=== PATIENT | male | born 1975 | race Caucasian/White ===

== ENCOUNTER 2017-07-11 19:08 | Emergency (ER) | payer BC ==
[2017-07-11 19:09] VITALS: BMI 26.9
[2017-07-11 19:36] VITALS: O2SAT 99
[2017-07-11] MEDS ORDERED: Iohexol 240 (50 ml) PO STA (19:55)
[2017-07-11] MEDS ORDERED: Sodium Chloride 0.9% 1,000 ML IV ONE (19:55)
[2017-07-11] MEDS ORDERED: Iohexol 240 (50 ml) ONE (20:06)
[2017-07-11] MEDS ORDERED: Sodium Chloride 0.9% 1,000 ML ONE (20:07)
[2017-07-11 20:13] LABS: RBC URINE < 1 /hpf (0-3); URINE BILIRUBIN NEGATIVE (NEGATIVE); URINE BLOOD NEGATIVE (NEGATIVE); URINE COLOR Yellow (YELLOW); URINE GLUCOSE (UA) NORMAL (Normal); URINE KETONE NEGATIVE (NEGATIVE); URINE LEUKOCYTE ESTERASE NEG Leu/uL (Negative); URINE PROTEIN NEGATIVE (NEGATIVE); URINE UROBILINOGEN NORMAL mg/dL (0.2-1.0); WBC URINE < 1 /hpf (0-5)
[2017-07-11 20:16] LABS: BASO # 0.1 K/uL (0.0-0.2); EOS # 0.1 K/uL (0.0-0.7); EOS % 0.8 % (0.0-4.0); HEMATOCRIT 39.7 % (35.0-51.0); LYMPH # 4.6 K/uL (1.0-4.3); LYMPH % 36.3 % (20.0-40.0); MEAN CELL VOLUME 85.5 fL (80.0-94.0); MEAN CORPUSCULAR HEMOGLOBIN 28.7 pg (27.0-31.0); MEAN CORPUSCULAR HGB CONC 33.5 g/dL (33.0-37.0); MEAN PLATELET VOLUME 7.4 fL (7.2-11.7); MONO # 0.6 K/uL (0.0-0.8); MONO % 4.8 % (0.0-10.0); RED CELL DISTRIBUTION WIDTH 13.5 % (11.5-14.5); WHITE BLOOD COUNT 12.7 K/uL (4.8-10.8)
[2017-07-11 20:26] LABS: CHLORIDE 100 mmol/L (98-107); POTASSIUM 3.6 mmol/L (3.6-5.2); SODIUM 135 mmol/L (132-148)
[2017-07-11 20:28] LABS: GFR AFRICAN-AMERICAN > 60
[2017-07-11 20:29] LABS: ALB/GLOB RATIO 1.3 (1.0-2.1); ALKALINE PHOSPHATASE 81 U/L (38-126); ALT/SGPT 33 U/L (21-72); AST/SGOT 20 U/L (17-59); BILIRUBIN,TOTAL 0.5 mg/dL (0.2-1.3); BLOOD UREA NITROGEN 17 mg/dL (9-20); CALCIUM 9.1 mg/dl (8.6-10.4); CARBON DIOXIDE 22 mmol/L (22-30); GLUCOSE,RANDOM 102 mg/dL (75-110); TOTAL PROTEIN 7.6 g/dL (6.3-8.3)
[2017-07-11] MEDS ORDERED: Iohexol 300 100 ML IJ ONE (20:41)
[2017-07-11 22:17] VITALS: BP 130/76; PULSE 98; RESP 18; TEMP 97.6
--- NOTE | 2017-07-11 22:23 | CT ---
EXAM: CT Abdomen and Pelvis With Intravenous Contrast CLINICAL HISTORY: 42 years old, male; Pain; Abdominal pain; Generalized; Additional info: Lower abdominal pain TECHNIQUE: Axial computed tomography images of the abdomen and pelvis with intravenous contrast. All CT scans at this facility use one or more dose reduction techniques, viz.: automated exposure control; ma/kV adjustment per patient size (including targeted exams where dose is matched to indication; i.e. head); or iterative reconstruction technique. Coronal and sagittal reformatted images were created and reviewed. CONTRAST: 100 mL of omnipaque 300 administered intravenously. COMPARISON: No relevant prior studies available. FINDINGS: Lower thorax: Incompletely visualized on the current examination is a rounded soft tissue density at the level of the right hilum, possibly vascular in origin. ABDOMEN: Liver: No acute findings. Gallbladder and bile ducts: The gallbladder is decompressed. No calcified stones. No significant intra- or extrahepatic biliary ductal dilation. Pancreas: Enhances homogeneously. No ductal dilation. No discrete mass. Spleen: No acute findings. Adrenals: No acute findings. Kidneys and ureters: No acute findings. No hydronephrosis or renal calculi. No discrete solid mass. PELVIS: Bladder: Moderate bladder distention. Reproductive: Bilateral hydroceles, incompletely evaluated on the current examination. Appendix: The air filled appendix is of normal caliber (Series 3, image 115) . ABDOMEN and PELVIS: Stomach and bowel: No obstruction. No mucosal thickening. Peritoneum: No significant fluid collection. No free air. Lymph nodes: No pathologically enlarged lymph nodes. Vasculature: Unremarkable. Bones: No acute fracture. IMPRESSION: Soft tissue density at the level of the right hilum, possibly vascular in origin. Normal appendix. Normal gallbladder. Distended bladder.
--- NOTE | 2017-07-11 23:29 | C.PDOC ---
History Of Present Illness 42 year old male who presents to the ER with a complaint of suprapubic and right testicular pain intermittently for the past week. Patient reports he has been eating well; denies nausea, vomiting, hematuria, dysuria, penile discharge , fever, chills, or blood in stool. Chief Complaint (Nursing): Male Genitourinary History Per: Patient History/Exam Limitations: no limitations Onset/Duration Of Symptoms: Days, Intermittent Episodes Current Symptoms Are (Timing): Still Present Quality Of Discomfort: Unable To Describe Associated Symptoms: denies: Fever, Chills, Urinary Symptoms Alleviating Factors: None Recent travel outside of the [place]: No Past Medical History Reviewed: Historical Data, Nursing Documentation, Vital Signs Vital Signs: Last Vital Signs Temp 97.6 F 07/11/17 22: Pulse 98 H 07/11/17 22:17 Resp 18 07/11/17 22:17 BP 130/76 07/11/17 22:17 Pulse Ox 99 07/11/17 23:36 - Medical History PMH: Fractures (,left wrist 2012), Gastritis, HTN - [facility] Procedures APPLICATION OF SPLINT (06/08/13) ENDOSC POLYPECTOMY OF LG INTEST (02/13/14) ESOPHAGOGASTRODUODENOSCOPY [EGD] W/CLOSED BIOPSY (02/13/14) INFLUENZA VACCINATION (09/10/14) VACCINATION NEC (09/10/14) Family History: States: [place] (mother), CAD (mother had CABG at age 65) - Social History Hx Tobacco Use: Yes Hx Alcohol Use: Yes Hx Substance Use: No - Immunization History Hx Tetanus Toxoid Vaccination: No Hx Influenza Vaccination: Yes Hx Pneumococcal Vaccination: No Review Of Systems Constitutional: Negative for: Fever, Chills Gastrointestinal: Positive for: Abdominal Pain (Suprapubic). Negative for: Other (Blood in stool) Genitourinary: Positive for: Scrotal Pain (Right testicular). Negative for: Dysuria, Hematuria, Penile Discharge Physical Exam - Physical Exam Appears: Non-toxic, No Acute Distress Skin: Normal Color, Warm, Dry Head: Atraumatic, Normacephalic Oral Mucosa: Moist Chest: Symmetrical Cardiovascular: Rhythm Regular Respiratory: Normal Breath Sounds, No Rales, No Rhonchi, No Wheezing Gastrointestinal/Abdominal: Soft, Tenderness (Minimal suprapubic), No Guarding, No Rebound Male Genital: No Testicular Tenderness, No Testicular Swelling, No Inguinal Tenderness, No Inguinal Swelling, No Scrotal Swelling, Circumcised, No Other ( No appreciable masses) Neurological/Psych: Oriented x3, Normal Speech, Normal Cognition ED Course And Treatment - Laboratory Results Result Diagrams: 07/11/17 20:12 07/11/17 20:12 O2 Sat by Pulse Oximetry: 99 (Room air) Pulse Ox Interpretation: Normal - CT Scan/US CT abd/pel Other Rad Studies (CT/US): Read By Radiologist, Radiology Report Reviewed CT/US Interpretation: IMPRESSION: Soft tissue density at the level of the right hilum, possibly vascular in origin. Normal appendix. Normal gallbladder. Distended bladder. Testicular US Other Rad Studies (CT/US): Read By Radiologist, Radiology Report Reviewed CT/US Interpretation: IMPRESSION: Small bilateral hydroceles. Otherwise no acute finding. Progress Note: CT abd/pel, testicular US, blood work, and urinalysis ordered. Pepcid, zofran, and IV fluids administered. Patient discharged home and instructed to follow up with PMD. Disposition - Disposition Referrals: Kay Johns, [Non-Staff] - Disposition: HOME/ ROUTINE Disposition Time: 22:20 Condition: IMPROVED Additional Instructions: Thank you for letting us take care of you today. Your provider was Dr. Painter. You were treated for abdominal pain. The emergency medical care you received today was directed at your acute symptoms. If you were prescribed any medication, please fill it and take as directed. It may take several days for your symptoms to resolve. Return to the Emergency Department if your symptoms worsen, do not improve, or if you have any other problems. Please contact your doctor or call one of the physicians/clinics you have been referred to that are listed on the Patient Visit Information form that is included in your discharge packet. Bring any paperwork you were given at discharge with you along with any medications you are taking to your follow up visit. Our treatment cannot replace ongoing medical care by a primary care provider (PCP) outside of the emergency department. Thank you for allowing the [facility] team to be part of your care today. Follow up with your primary doctor in 2-3 days for re-evaluation and further management. Instructions: Abdominal Pain (ED) Forms: Language123 (Tajik) - Clinical Impression Clinical Impression: Abdominal pain - Scribe Statement Scott Doll All medical record entries made by the Scribkingsley were at my direction and personally dictated by me. I have reviewed the chart and agree that the record accurately reflects my personal performance of the history, physical exam, medical decision making, and the department course for this patient. I have also personally directed, reviewed, and agree with the discharge instructions and disposition.
--- NOTE | 2017-07-12 09:14 | US ---
Testicular ultrasound History: Right testicular pain. Comparison: None available. Technique: Real-time sonography was performed through the scrotum. Findings: Right testes: 5.4 x 2.4 x 3.0 centimeters. Normal flow. Homogeneous echotexture. Right epididymis measures 1.0 x 0.9 x 0.9 centimeters. Normal flow. Small right epididymal cyst measuring 3 x 2 x 2 millimeters. Small right scrotal hydrocele. Left testes: 5.7 x 2.2 x 3.1 centimeters. Normal flow. Homogeneous echotexture. Left epididymis measures 1.1 x 0.6 x 0.7 centimeters. Normal flow. Small left scrotal hydrocele. Impression: Small bilateral scrotal hydroceles. 3 millimeter right epididymal cyst. These findings were preliminarily reported at 9:24 p.m. on 07/11/[address] Joey Young from [facility].
== END 2017-07-11 22:47 | disposition home or self-care (01) ==
LOC: C.ER 19:08 → SUPCPDRO 19:08 → C.ER 22:47
DX: R10.30 Lower abdominal pain, unspecified (principal)
CPT/HCPCS: 74177; 76870; 80053; 81001; 83690; 85025; 87086; 96361; 96374; 96375; 99285; J2405; J7040; Q9966; Q9967

== ENCOUNTER 2019-01-15 04:25 | Emergency (ER) | payer BC ==
[2019-01-15 04:25] VITALS: BMI 26.9
[2019-01-15 04:43] VITALS: TEMP 97.6; O2SAT 100
[2019-01-15] MEDS ORDERED: Sodium Chloride 0.9% 500 ML IV ONE (05:24)
[2019-01-15 05:29] LABS: SQUAMOUS EPITHIAL < 1 /hpf (0-5); URINE BILIRUBIN NEGATIVE (NEGATIVE); URINE BLOOD NEGATIVE (NEGATIVE); URINE CLARITY Clear (Clear); URINE COLOR Yellow (YELLOW); URINE GLUCOSE (UA) NORMAL (Normal); URINE LEUKOCYTE ESTERASE NEG Leu/uL (Negative); URINE PROTEIN NEGATIVE (NEGATIVE); URINE UROBILINOGEN NORMAL mg/dL (0.2-1.0)
[2019-01-15 05:39] LABS: BASO # 0.1 K/uL (0.0-0.2); BASO % 0.9 % (0.0-2.0); EOS # 0.2 K/uL (0.0-0.7); EOS % 1.6 % (0.0-4.0); HEMOGLOBIN 14.1 g/dL (12.0-18.0); LYMPH # 4.3 K/uL (1.0-4.3); LYMPH % 39.8 % (20.0-40.0); MEAN CELL VOLUME 86.8 fL (80.0-94.0); MEAN CORPUSCULAR HEMOGLOBIN 28.4 pg (27.0-31.0); MEAN CORPUSCULAR HGB CONC 32.8 g/dL (33.0-37.0); MEAN PLATELET VOLUME 7.5 fL (7.2-11.7); MONO # 0.6 K/uL (0.0-0.8); MONO % 5.2 % (0.0-10.0); NEUT # 5.7 K/uL (1.8-7.0); NEUT % 52.5 % (50.0-75.0); NRBC % 0.1 % (0.0-2.0); RBC 4.97 Mil/uL (4.40-5.90); RED CELL DISTRIBUTION WIDTH 14.3 % (11.5-14.5); WHITE BLOOD COUNT 10.8 K/uL (4.8-10.8)
[2019-01-15 05:46] LABS: ALB/GLOB RATIO 1.3 (1.0-2.1); ALBUMIN 4.1 g/dL (3.5-5.0); ALT/SGPT 8 U/L (21-72); AST/SGOT 18 U/L (17-59); BLOOD UREA NITROGEN 10 mg/dL (9-20); CALCIUM 9.2 mg/dl (8.6-10.4); GFR NON-AFRICAN AMERICAN > 60
--- NOTE | 2019-01-15 05:54 | C.PDOC ---
History Of Present Illness 43 year old male presents with intermittent suprapubic pain for the past month that worsened today, described as 9/10 pain. Denies nausea, vomiting, diarrhea, constipation, testicular pain, or trauma. Time Seen by Provider: 01/15/19 04:58 Chief Complaint (Nursing): Abdominal Pain History Per: Patient History/Exam Limitations: no limitations Onset/Duration Of Symptoms: Days (one month), Intermittent Episodes, Worse Since (Today) Current Symptoms Are (Timing): Still Present Pain Scale Rating Of: 9 Location Of Pain/Discomfort: Suprapubic Quality Of Discomfort: Unable To Describe Associated Symptoms: denies: Nausea, Vomiting, Urinary Symptoms, Other (Testicular pain) Exacerbating Factors: None Alleviating Factors: None Recent travel outside of the [place]: No Past Medical History Reviewed: Historical Data, Nursing Documentation, Vital Signs Vital Signs: Last Vital Signs Temp 97.6 F 01/15/19 04:31 Pulse 78 01/15/19 04:31 Resp 18 01/15/19 04:31 BP 126/83 01/15/19 04:31 Pulse Ox 100 01/15/19 04:31 - Medical History PMH: Fractures (,left wrist 2012), Gastritis, HTN Denies: Chronic Kidney Disease - [facility] Procedures APPLICATION OF SPLINT (06/08/13) ENDOSC POLYPECTOMY OF LG INTEST (02/13/14) ESOPHAGOGASTRODUODENOSCOPY [EGD] W/CLOSED BIOPSY (02/13/14) INFLUENZA VACCINATION (09/10/14) VACCINATION NEC (09/10/14) Family History: States: [place] (mother), CAD (mother had CABG at age 65) - Social History Hx Tobacco Use: Yes Hx Alcohol Use: Yes Hx Substance Use: No - Immunization History Hx Tetanus Toxoid Vaccination: No Hx Influenza Vaccination: Yes Hx Pneumococcal Vaccination: No Review Of Systems Constitutional: Negative for: Fever, Chills Cardiovascular: Negative for: Chest Pain, Palpitations Respiratory: Negative for: Cough, Shortness of Breath Gastrointestinal: Positive for: Abdominal Pain. Negative for: Nausea, Vomiting, Diarrhea, Constipation Genitourinary: Negative for: Dysuria, Hematuria, Scrotal Pain Physical Exam - Physical Exam Appears: Non-toxic Skin: Normal Color, Warm Head: Atraumatic, Normacephalic Eye(s): bilateral: Normal Inspection Oral Mucosa: Moist Chest: Symmetrical, No Tenderness Cardiovascular: Rhythm Regular Respiratory: Normal Breath Sounds, No Rales, No Rhonchi, No Wheezing Gastrointestinal/Abdominal: Bowel Sounds (Normal), Soft, Tenderness (b/l duenas prapubic area), No Distention, No Guarding, No Rebound, No Hernia, No Other (periumbilical or RLQ/RUQ tenderness) Back: No CVA Tenderness Male Genital: No Testicular Tenderness, No Testicular Swelling, No Inguinal Tenderness, No Inguinal Swelling, No Scrotal Swelling, Other (Loan Service Officer RN Hailee) Neurological/Psych: Oriented x3, Normal Speech ED Course And Treatment - Laboratory Results Result Diagrams: 01/15/19 05:28 01/15/19 05:28 Lab Results: Total Bilirubin 0.2 mg/dL (0.2-1.3) 01/15/19 05:28 AST 18 U/L (17-59) 01/15/19 05:28 ALT 8 U/L (21-72) L D 01/15/19 05:28 Alkaline Phosphatase 108 U/L (38-126) 01/15/19 05:28 Total Protein 7.2 g/dL (6.3-8.3) 01/15/19 05:28 Albumin 4.1 g/dL (3.5-5.0) 01/15/19 05:28 Globulin 3.1 gm/dL (2.2-3.9) 01/15/19 05:28 Albumin/Globulin Ratio 1.3 (1.0-2.1) 01/15/19 05:28 Urine Color Yellow (YELLOW) 01/15/19 05:22 Urine Clarity Clear (Clear) 01/15/19 05:22 Urine pH 5.0 (5.0-8.0) 01/15/19 05:22 Ur Specific Merna 1.024 (1.003-1.030) 01/15/19 05:22 Urine Protein Negative mg/dL (NEGATIVE) 01/15/19 05:22 Urine Glucose (UA) Normal mg/dL (Normal) 01/15/19 05:22 Urine Ketones Negative mg/dL (NEGATIVE) 01/15/19 05:22 Urine Blood Negative (NEGATIVE) 01/15/19 05:22 Urine Nitrate Negative (NEGATIVE) 01/15/19 05:22 Urine Bilirubin Negative (NEGATIVE) 01/15/19 05:22 Urine Urobilinogen Normal mg/dL (0.2-1.0) 01/15/19 05:22 Ur Leukocyte Esterase Neg Jag/uL (Negative) 01/15/19 05:22 Urine WBC (Auto) 1 /hpf (0-5) 01/15/19 05:22 Urine RBC (Auto) 2 /hpf (0-3) 01/15/19 05:22 Ur Squamous Epith Cells < 1 /hpf (0-5) 01/15/19 05:22 O2 Sat by Pulse Oximetry: 100 (Room air) Pulse Ox Interpretation: Normal - CT Scan/US CT abd/pel Other Rad Studies (CT/US): Read By Radiologist, Radiology Report Reviewed CT/US Interpretation: CT SCAN OF THE ABDOMEN AND PELVIS WITH CONTRAST. CLINICAL HISTORY: Abdominal pain. Epigastric pain. TECHNIQUE: Multiple axial and coronal CT images were obtained through the abdomen and pelvis after administration of intravenous contrast material. COMMENTS: Fat-containing inguinal hernias without incarceration. Moderate amount of fecal residue is noted in the large bowels. Uncomplicated colonic diverticulosis. The liver is of uniform attenuation without mass or defect. There is no intra or extrahepatic biliary ductal dilatation. The spleen is normal. The gallbladder is within normal limits. The pancreas is of normal contour and attenuation characteristics. There is no evidence of adrenal mass. Both kidneys demonstrate prompt and equal nephrograms. The kidneys are normal in size, shape and configuration. There is no evidence of renal or ureteral mass. No renal or ureteral calculi are identified. There is no hydroureter or hydronephrosis. No evidence for appendicitis. There is no bowel wall thickening. No evidence for small or large bowel obstruction. There is no evidence of abdominal ascites or lymphadenopathy. There is no evidence of intrinsic or extrinsic bladder mass. There is no pelvic ascites or lymphadenopathy. Images of the lung bases show no evidence of pleural or parenchymal mass. There are no pleural effusions. The bony structures are free of lytic or blastic lesions. IMPRESSION: Fat- containing inguinal hernias without incarceration. Moderate amount of fecal residue is noted in the large bowels. Uncomplicated colonic diverticulosis. Progress Note: CT abd/pel, blood work, and UA ordered, results were negative. IV fluids and toradol administered. On reevaluation, patient is resting comfortably in no acute distress, afebrile, tolerating PO, abdomen is soft, vitals are stable, will discharge home with instructions to follow up with PMD/ general surgery or return if symptoms worsen. All instructions were given in pashto translated by guillermo Doll Reassessment Condition: Improved Disposition - Disposition Referrals: [facility] [Outside] [facility] [Outside] Disposition: HOME/ ROUTINE Disposition Time: 06:50 Condition: STABLE Additional Instructions: Please take all meds as directed High fiber diet Follow up with PMD Return to ER if worse Prescriptions: Ibuprofen [Motrin] 600 mg PO Q6H #20 tab Polyethylene Glycol 3350 [Miralax] 17 gm PO DAILY #1 bottle Instructions: High Fiber Diet, Constipation, Adult (DC), Groin Hernia (DC) Forms: Tutor Assignment (Yoruba) Print Language: ETHIOPIAN - Clinical Impression Clinical Impression: Inguinal hernia, bilateral, Constipation, Abdominal pain - PA / SENIOR NETWORK ARCHITECT / Resident Statement MD/DO has reviewed & agrees with the documentation as recorded. - Scribe Statement The provider has reviewed the documentation as recorded by the Guillermo Doll All medical record entries made by the Guillermo were at my direction and personally dictated by me. I have reviewed the chart and agree that the record accurately reflects my personal performance of the history, physical exam, medical decision making, and the department course for this patient. I have also personally directed, reviewed, and agree with the discharge instructions and disposition.
[2019-01-15] MEDS ORDERED: Iodixanol 320 MG/ML 100 ML BOTTLE IV ONE (06:07)
[2019-01-15 06:36] VITALS: BP 125/85; PULSE 63; RESP 17
--- NOTE | 2019-01-15 09:23 | CT ---
Date of service: 01/15/2019 PROCEDURE: CT Abdomen and Pelvis with contrast HISTORY: Abdominal and epigastric pain. COMPARISON: 07/11/2017 TECHNIQUE: Multiple contiguous axial images were performed through the abdomen and pelvis with the use of intravenous contrast. Subsequently, sagittal and coronal reformatted images were obtained. Radiation dose: Total exam DLP = 545.59 mGy-cm. This CT exam was performed using one or more of the following dose reduction techniques: Automated exposure control, adjustment of the mA and/or kV according to patient size, and/or use of iterative reconstruction technique. FINDINGS: LOWER THORAX: Mosaic attenuation of the lung anderson. LIVER: Mild fatty infiltration of the liver. GALLBLADDER AND BILE DUCTS: Unremarkable. PANCREAS: Unremarkable. No gross lesion or ductal dilatation. SPLEEN: Unremarkable. ADRENALS: Unremarkable. No mass. KIDNEYS AND URETERS: Unremarkable. No hydronephrosis. No solid mass. VASCULATURE: Unremarkable. No aortic aneurysm. No aortic atherosclerotic calcification or mural plaque present. BOWEL: Unremarkable. No obstruction. No gross mural thickening. Fecal retention in the colon. Colonic diverticuli. APPENDIX: Normal appendix. PERITONEUM: Unremarkable. No free fluid. No free air. LYMPH NODES: Unremarkable. No enlarged lymph nodes. BLADDER: Underdistended urinary bladder. REPRODUCTIVE: Unremarkable. BONES: Degenerative changes in the spine. OTHER FINDINGS: Small fat containing inguinal hernias. IMPRESSION: Fat containing inguinal hernias without incarceration. Moderate amount of fecal retention in the colon. Colonic diverticulosis. Mild fatty infiltration of the liver. A preliminary report was generated at 6:40 a.m. on 01/15/[address] Cuong Fritz from [facility]
== END 2019-01-15 07:03 | disposition home or self-care (01) ==
LOC: C.ER 04:25
DX: K40.20 Bilateral inguinal hernia, without obstruction or gangrene, not specified as recurrent (principal); K59.00 Constipation, unspecified; R10.9 Unspecified abdominal pain; I10 Essential (primary) hypertension; F17.210 Nicotine dependence, cigarettes, uncomplicated
CPT/HCPCS: 74177; 80053; 81001; 85025; 96374; 99284; J1885; J7040; Q9967